=== PATIENT | female | born 1950 | race Caucasian/White ===

== ENCOUNTER 2016-11-19 18:37 | Inpatient (IN) | payer OTHER ==
[~2016-11-19] VITALS: Ht 167.6 cm; Wt 50.8 kg
[~2016-11-19 18:37] MED LIST: HYDR-3138 PO; METH750T87 PO; OXYC-302 PO; SENN1TAB67 PO
[2016-11-19 19:40] VITALS: BP 130/83
[2016-11-19] MEDS ORDERED: FLUT1DIS3 INH (20:20)
[2016-11-19] MEDS ORDERED: ALBU5SOL5 NEB (20:20)
[2016-11-19] MEDS ORDERED: TIOT4MIS5 INH (20:20)
[2016-11-19] MEDS ORDERED: TRAZ50TA18 PO (20:21)
[2016-11-19] MEDS ORDERED: TEMAZEPAM 15 MG CAPSULE PO PRN (23:30)
[2016-11-19] MEDS ORDERED: ENALAPRILAT 1.25 MG/ML, 2ML IVPush PRN (23:30)
[2016-11-19] MEDS ORDERED: SENNA/DOCUSATE TABLET PO PRN (23:30)
[2016-11-19] MEDS: methylPREDNISolone SOD SUCC 40 MG/ML IV SCH (23:30)
[2016-11-19] MEDS ORDERED: ONDANSETRON ODT 4 MG PO PRN (23:30)
[2016-11-19] MEDS: NICOTINE 7 MG/24 HR PATCH.TD24 TD SCH (23:30)
[2016-11-19] MEDS ORDERED: POLYETHYLENE GLYCOL 17 GM PACKET PO PRN (23:30)
[2016-11-19] MEDS: TRAZODONE 50MG TABLET PO SCH (23:30)
[2016-11-19] MEDS: ENOXAPARIN 40 MG/0.4 ML SQ SCH (23:30)
[2016-11-20 01:48] VITALS: BP 111/75
[2016-11-20] MEDS ORDERED: ALBUTEROL SULFATE 2.5 MG/3 ML ONE (05:01)
[2016-11-20] MEDS: methylPREDNISolone SOD SUCC 40 MG/ML IV SCH ×3 (05:11→17:58)
[2016-11-20] MEDS: ALBUTEROL 0.5%, 20ML NEB SCH ×2 (05:15→11:00)
[2016-11-20 05:37] LABS: HEMATOCRIT 38.8 % (34.6-47.8); HEMOGLOBIN 12.8 g/dL (11.7-16.4); WHITE BLOOD COUNT 4.5 x10^3/uL (3.4-10)
[2016-11-20 05:53] LABS: BLOOD UREA NITROGEN 12 mg/dL (7-18)
[2016-11-20] MEDS ORDERED: ALBUTEROL/IPRATROPIUM 2.5MG/0.5MG, 3 ML NPPB PRN (06:00)
[2016-11-20] MEDS: ALBUTEROL/IPRATROPIUM 2.5MG/0.5MG, 3 ML NPPB SCH ×4 (07:58→19:09)
[2016-11-20 08:01] VITALS: BP 133/77
[2016-11-20] MEDS ORDERED: IPRATROPIUM 0.5 MG/2.5 ML INHA HHN SCH (09:00)
[2016-11-20] MEDS: FLUTICASONE/VILANTEROL 100-25MCG/INH INH SCH (10:18)
[2016-11-20 12:51] VITALS: BP 137/64
[2016-11-20] MEDS: CEFTRIAXONE PMX 2GM/50ML 50 ML IV SCH (15:11)
[2016-11-20] MEDS: AZITHROMYCIN 500 MG in SODIUM CHLORIDE 0.9% 250 ML IV SCH (16:08)
[2016-11-20] MEDS: ACETAMINOPHEN 325 MG TABLET PO PRN (20:35)
[2016-11-20] MEDS: TRAZODONE 50MG TABLET PO SCH (20:35)
[2016-11-21 01:56] VITALS: BP 128/77
[2016-11-21] MEDS: NICOTINE 7 MG/24 HR PATCH.TD24 TD SCH (02:57)
[2016-11-21] MEDS: ENOXAPARIN 40 MG/0.4 ML SQ SCH (02:57)
[2016-11-21] MEDS: methylPREDNISolone SOD SUCC 40 MG/ML IV SCH ×4 (02:57→23:53)
[2016-11-21 05:35] LABS: HEMATOCRIT 36.6 % (34.6-47.8); HEMOGLOBIN 12.1 g/dL (11.7-16.4); WHITE BLOOD COUNT 8.7 x10^3/uL (3.4-10)
[2016-11-21 05:43] LABS: BLOOD UREA NITROGEN 13 mg/dL (7-18)
[2016-11-21 07:07] VITALS: BP 116/66
[2016-11-21] MEDS: ALBUTEROL/IPRATROPIUM 2.5MG/0.5MG, 3 ML NPPB SCH ×4 (07:45→19:31)
[2016-11-21] MEDS: FLUTICASONE/VILANTEROL 100-25MCG/INH INH SCH (08:04)
[2016-11-21] MEDS ORDERED: LORazepam 1MG TABLET ONE (13:23)
[2016-11-21] MEDS: LORazepam 0.5MG TABLET PO PRN ×2 (13:30→23:53)
[2016-11-21] MEDS: CEFTRIAXONE PMX 2GM/50ML 50 ML IV SCH (13:58)
[2016-11-21 14:13] VITALS: BP 121/75
[2016-11-21] MEDS: AZITHROMYCIN 500 MG in SODIUM CHLORIDE 0.9% 250 ML IV SCH (15:06)
[2016-11-21] MEDS: ACETAMINOPHEN 325 MG TABLET PO PRN (19:40)
[2016-11-21] MEDS: TRAZODONE 50MG TABLET PO SCH (19:40)
[2016-11-21 19:51] VITALS: BP 133/92
[2016-11-21 20:08] VITALS: BP 103/66
[2016-11-22 01:31] VITALS: BP 113/66
[2016-11-22] MEDS: ENOXAPARIN 40 MG/0.4 ML SQ SCH (04:12)
[2016-11-22] MEDS: NICOTINE 7 MG/24 HR PATCH.TD24 TD SCH (04:12)
[2016-11-22] MEDS: ALBUTEROL/IPRATROPIUM 2.5MG/0.5MG, 3 ML NPPB SCH ×2 (07:25→10:30)
[2016-11-22 07:59] VITALS: BP 139/80
[2016-11-22] MEDS: methylPREDNISolone SOD SUCC 40 MG/ML IV SCH (08:13)
[2016-11-22] MEDS: FLUTICASONE/VILANTEROL 100-25MCG/INH INH SCH (08:13)
[2016-11-22] MEDS ORDERED: PRED20TA PO (11:13)
[2016-11-22] MEDS ORDERED: CEFD300C37 PO (11:13)
[2016-11-22] MEDS ORDERED: AZIT500T77 PO (11:13)
== END 2016-11-22 12:36 | disposition home or self-care (01) | DRG 189 ==
LOC: 4EST 19:38
PROVIDERS: ADMIT Internal Medicine; ATTEND Internal Medicine
DX: J96.21 Acute and chronic respiratory failure with hypoxia (principal); J44.1 Chronic obstructive pulmonary disease with (acute) exacerbation; E87.1 Hypo-osmolality and hyponatremia; F33.0 Major depressive disorder, recurrent, mild; D75.89 Other specified diseases of blood and blood-forming organs; F17.210 Nicotine dependence, cigarettes, uncomplicated; R73.9 Hyperglycemia, unspecified; T38.0X5A Adverse effect of glucocorticoids and synthetic analogues, initial encounter; Z80.1 Family history of malignant neoplasm of trachea, bronchus and lung; Z87.01 Personal history of pneumonia (recurrent); Z99.81 Dependence on supplemental oxygen; Y92.89 Other specified places as the place of occurrence of the external cause; Z90.710 Acquired absence of both cervix and uterus
CPT/HCPCS: 36415; 71010; 80048; 82040; 85025; 87070; 87205; 94640; J0456; J0696; J1650; J7620; J2920; J7050